=== PATIENT | female | born 1970 | race Caucasian/White ===

== ENCOUNTER → 2020-10-30 | Outpatient (CLI) | payer OTHER, BC | LOC: KOH-I 10:45 | DX: M25.561 Pain in right knee (principal); M25.562 Pain in left knee | CPT/HCPCS: 73562 ==

== ENCOUNTER → 2021-01-15 | Outpatient (CLI) | payer BC ==
[2021-01-15 11:03] LABS: RED BLOOD COUNT 4.62 M/UL (4.00-5.10); WHITE BLOOD COUNT 6.3 K/UL (4.5-11.0)
[2021-01-15 11:29] LABS: BUN/CREATININE RATIO 27 (0-10)
[2021-01-16 09:14] LABS: THYROXINE (T4) 8.9 ug/dL (4.5-12.0); VITAMIN D, 25-HYDROXY 43.1 ng/mL (30.0-100.0)
== END ==
LOC: LAB 10:30
PROVIDERS: Nurse Practitioner Family
DX: G43.109 Migraine with aura, not intractable, without status migrainosus (principal); R53.82 Chronic fatigue, unspecified; M25.50 Pain in unspecified joint
CPT/HCPCS: 36415; 80053; 80061; 81001; 83036; 84436; 84443; 84480; 85025; 85652; 86140